=== PATIENT | female | born 1985 | race Caucasian/White ===

== ENCOUNTER 2018-05-12 14:33 | Emergency (ER) | payer OTHER ==
[2018-05-12 15:04] VITALS: TEMP 98.6
[2018-05-12] MEDS ORDERED: ALBUTEROL NEB SOL 2.5MG/3ML 1 VIAL SOL ONE (15:15)
[2018-05-12] MEDS ORDERED: ALBUTEROL NEB SOL 2.5MG/3ML 1 VIAL SOL NEB ONE ×2 (15:15)
[2018-05-12] MEDS ORDERED: PREDNISONE 20 MG TAB PO ONE (15:24)
[2018-05-12] MEDS ORDERED: PREDNISONE 20 MG TAB ONE (15:25)
[2018-05-12 15:33] VITALS: PULSE 90; RESP 20; O2SAT 99
[2018-05-12 15:53] VITALS: BP 113/68
== END 2018-05-12 15:46 | disposition home or self-care (01) | DRG 203 ==
LOC: ED 14:33
DX: J20.9 Acute bronchitis, unspecified (principal)
CPT/HCPCS: 99283; J7613; A9270-GY

== ENCOUNTER 2018-05-16 19:08 | Emergency (ER) | payer OTHER ==
[2018-05-16 19:28] VITALS: BP 127/84; PULSE 77; O2SAT 100
[2018-05-16 19:39] VITALS: RESP 18; TEMP 96.5
== END 2018-05-16 20:07 | disposition home or self-care (01) | DRG 563 ==
LOC: ED 19:08
DX: S63.642A Sprain of metacarpophalangeal joint of left thumb, initial encounter (principal)
CPT/HCPCS: 73140; 99282